=== PATIENT | male | born 1995 | race Caucasian/White ===

== ENCOUNTER 2016-11-10 | Emergency (ER) | payer BC ==
[~2016-11-10] VITALS: Ht 172.7 cm; Wt 70.0 kg
[2016-11-10 00:04] VITALS: Ht 172.7 cm; Wt 70.0 kg
--- NOTE | 2016-11-10 01:19 | ERD ---
ER Documentation Chief Complaint Date/Time DATE: 11/10/16 TIME: 01:17 Chief Complaint PT REPORTS EPIGASTRIC PAIN AFTER SWALLOWING LIQUIDS/FOODS, FEVERS AT HOME HPI This 20-year-old male patient presents to emergency department with a 3 day hx of pain with swallowing, pain from throat to epigastric . pt seen and treated at clinic with azithromycin patient denies knowing what his diagnosis. ROS All systems reviewed and are negative except as per history of present illness. Allergies Allergies: Coded Allergies: No Known Allergy (Unverified , 11/10/16) PMhx/Soc Medical and Surgical Hx: pt denies Medical Hx History of Surgery: Yes (right knee sx) Anesthesia Reaction: No Hx Neurological Disorder: No Hx Respiratory Disorders: No Hx Cardiac Disorders: No Hx Psychiatric Problems: No Hx Miscellaneous Medical Probl: No Hx Alcohol Use: Yes Hx Substance Use: No Hx Tobacco Use: No Smoking Status: Never smoker Physical Exam Vitals Vital Signs Date Time Temp Pulse Resp B/P Pulse Ox O2 Delivery O2 Flow Rate FiO2 11/10/16 00:04 98.1 79 18 127/80 97 Physical Exam Const: Nourished well-appearing well-hydrated male patient no acute distress Head: Atraumatic Eyes: Normal Conjunctiva ENT: Normal External Ears, Nose and Mouth. Neck: Full range of motion..~ No meningismus. Resp: Cardio: Abd: Skin: Back: Ext: Neur: Awake and alert Psych: Normal Mood and Affect Results 24 hrs Current Medications Medications (Trade) Dose Ordered Sig/Radha Route PRN Reason Start Time Stop Time Status Last Admin Dose Admin Sodium Chloride (NS) 1,000 ml @ 1,000 mls/hr Q1H ONCE IV 11/10/16 01:30 11/10/16 02:29 DC 11/10/16 01:48 Miscellaneous Medication (Gi Cocktail (2)) 40 ml ONCE ONCE PO 11/10/16 01:30 11/10/16 01:31 DC 11/10/16 01:48 Pantoprazole (Protonix Iv) 40 mg ONCE ONCE IV 11/10/16 01:30 11/10/16 01:31 DC 11/10/16 01:48 Ketorolac Tromethamine (Toradol) 15 mg ONCE STAT IV 11/10/16 01:22 11/10/16 01:24 DC 11/10/16 01:48 Procedures/MDM This 20-year-old male patient presents to emergency department with sore throat for the last 3 days. Patient has been in his clinic and treated for azithromycin. Patient reports that he has had strep throat in the past and this feels differently. Patient reports pain with swallowing, deep breathing. Patient reports pain is from throat all the way to his epigastric area. Emergency room course includes throat culture, rapid strep, and swab for gonorrhea. Rapid strep is negative for evidence of infection, plan to treat with one large dose of azithromycin 1000 mg. And 250 mg of Rocephin. Patient will be discharged home Augmentin. Patient is stable with no new complaints during ER course, clinically there is no current evidence to suggest meningitis , tonsillar abscess, parotiditis or any other emergent condition appearing to require further evaluation or hospitalization. I feel the patient is stable for discharge at this time. I have discussed results, examination findings, the treatment plan with the patient and family present prior to discharge. Indications for emergent reevaluation, side effects of medication were also discussed. All questions were answered. Patient verbalizes understanding and agrees with plan of care. Departure Diagnosis: Primary Impression: Throat infection Condition: Good Patient Instructions: When You Have a Sore Throat Referrals: [facility] Additional Instructions: Thank you for for coming to the [facility] for your care today. Please ask your nurse or provider if you have questions about your care today and do not leave until all your questions have been answered. Please use any medications given as directed and follow-up with your doctor (or the doctor you were referred to) in the next 2-3 days. If you do not have a primary care doctor you may follow up at the [facility] (listed below). You may also use motrin and tylenol as needed for fever and/or pain unless instructed otherwise by your provider or nurse. Indications for more urgent follow-up have been discussed, but you may return to the Emergency Department at ANY time for any worrisome or worsening symptoms. If you have abdominal pain, please know that no test or exam you received is perfect and you should follow up within 8 hours for continued pain. If you had any imaging studies today, such as an X-Ray or CT Scan, these studies will be reviewed later by a radiologist. You will be called if there are important findings that were not identified today, so make sure the contact information you provided at registration is correct. If you received any narcotic pain control medicine today, such as Vicodin, Morphine or Dilaudid, your coordination and judgment may be affected for a number of hours. Please do not drive or operate heavy machinery, and you may want someone to assist you at home. If you were given a prescription for narcotic medication, be aware that it is very addictive- use sparingly and only if necessary. KRISTAN NATHAN Nov 10, 2016 01:19
[2016-11-10] MEDS ORDERED: KETOROLAC 15 MG INJ IV STA (01:22)
[2016-11-10] MEDS ORDERED: PANTOPRAZOLE 40 MG INJ IV ONE (01:30)
[2016-11-10] MEDS ORDERED: SOD CHLORIDE 0.9% 1,000 ML IV ONE (01:30)
[2016-11-10] MEDS ORDERED: LIDOCAINE/MYLANTA 40 ML BTL PO ONE (01:30)
[2016-11-10] MEDS ORDERED: AMOX1TAB10 PO (02:51)
[2016-11-10] MEDS ORDERED: PROM5SYR2 PO (02:57)
[2016-11-10] MEDS ORDERED: AZITHROMYCIN 250 MG TAB PO ONE (03:00)
[2016-11-10] MEDS ORDERED: CEFTRIAXONE 250 MG INJ IM ONE (03:00)
== END 2016-11-10 03:26 | disposition home or self-care (01) ==
LOC: FTE
DX: J02.9 Acute pharyngitis, unspecified (principal)
CPT/HCPCS: 87070; 87880; 96372; 96374; 96375; 99284; C9113; J0696; J1885; J7030; Z7610